=== PATIENT | male | born 1960 ===

== ENCOUNTER 2025-02-28 07:00 | Inpatient (IN) | payer OTHER ==
[~2025-02-28] VITALS: Ht 167.6 cm; Wt 96.2 kg
[2025-02-28 08:26] LABS: HEMATOCRIT 49.5 % (39.0-48.0); MEAN CELL VOLUME 93.1 fL (80.0-100.00); MEAN CORPUSCULAR HGB CONC 34.4 g/dl (32.0-36.0); RED BLOOD COUNT 5.31 M/uL (4.00-6.00)
[2025-02-28 08:29] LABS: PH,URINE 7.5 (5.0-8.0); URINE APPEARANCE Clear; URINE BILIRRUBIN Negative (NEGATIVE); URINE BLOOD Negative; URINE COLOR Yellow; URINE KETONE Trace (NEGATIVE); URINE LEUKOCYTE Negative; URINE NITRATE Negative; URINE PROTEIN Negative (NEGATIVE)
[2025-02-28 08:33] LABS: URINE EPITHELIAL CELLS 1.4 uL (0.0-38.8); URINE RBC 4.7 uL (0.0-20.8)
[2025-02-28 08:33] LABS: PLATELET COUNT 95 K/uL (150-450)
[2025-02-28 08:40] LABS: URINE BACTERIA 1.2 uL (0.0-1933); URINE GLUCOSE >=1000 MG/DL (NEGATIVE); URINE WBC 1.5 uL (0.0-23.2)
[2025-02-28 08:49] VITALS: BP 132/84
[2025-02-28] MEDS ORDERED: TRAZODONE HCL100 MG PO (08:50)
[2025-02-28] MEDS ORDERED: NEURONTIN600 M1 PO (08:51)
[2025-02-28] MEDS ORDERED: PROTONIX40 MG PO (08:51)
[2025-02-28] MEDS ORDERED: AMLODIPINE-OLM1 EAC2 (08:52)
[2025-02-28] MEDS ORDERED: TRAZODONE (08:53)
[2025-02-28] MEDS ORDERED: GLYXAMBI 25 MG1 EACH (08:53)
[2025-02-28] MEDS ORDERED: NORVASC2.5 MG PO (08:54)
[2025-02-28] MEDS ORDERED: CARVEDILOL12.5 MG (08:56)
[2025-02-28 09:05] LABS: INR 1.16; PARTIAL THROMBOPLASTIN TIME 31.3 SECONDS (22.0-34.0); PROTHROMBIN TIME 12.5 SECONDS (9.0-11.5)
[2025-02-28 09:22] LABS: BILIRUBIN TOTAL 1.31 mg/dL (0.3-1.2); CALCIUM 9.6 mg/dL (8.5-10.1); CREATININE SERUM 0.67 mg/dL (0.70-1.30); GFR 119.42; POTASSIUM 3.28 mEq/L (3.5-5.1)
[2025-03-05] MEDS ORDERED: CEFAZOLIN SODIUM 1,000 MG VIAL ONE ×2 (09:35→14:50)
[2025-03-05] MEDS ORDERED: TRANEXAMIC ACID 100MG/1ML (1000MG) AMPUL IV ONE ×3 (09:37→10:45)
[2025-03-05] MEDS ORDERED: KETOROLAC TROMETHAMINE 60 MG VIAL IM ONE ×2 (09:38→10:45)
[2025-03-05] MEDS ORDERED: OxyCODONE HCL/APAP UD (PERCOCET) PO PRN (10:30)
[2025-03-05] MEDS ORDERED: ONDANSETRON HCL 2 MG/ML VIAL IV PRN (10:30)
[2025-03-05] MEDS ORDERED: CEFAZOLIN SODIUM 1,000 MG VIAL IV ONE (10:45)
[2025-03-05] MEDS ORDERED: MORPHINE SULFATE 4 MG/ML VIAL IV ONE ×2 (10:45→14:55)
[2025-03-05] MEDS ORDERED: MORPHINE SULFATE 4 MG/ML CARTRIDGE IV SCH (12:00)
[2025-03-05] MEDS ORDERED: CEFAZOLIN SODIUM 1,000 MG VIAL IV SCH (14:00)
[2025-03-05] MEDS ORDERED: DEXTROSE 50 % IN WATER 0.5 G/ML VIAL IV PRN (16:15)
[2025-03-05] MEDS ORDERED: ENALAPRILAT DIHYDRATE 1.25 MG/ML VIAL IV PRN (16:15)
[2025-03-05] MEDS ORDERED: INSULIN LISPRO 1,000 UNIT/10 ML UNITS SUBCUTANEO PRN (16:15)
[2025-03-05 17:33] VITALS: BP 120/76; O2SAT 95
[2025-03-05] MEDS ORDERED: ORPHENADRINE CITRATE 100 MG TABLET PO SCH (21:00)
[2025-03-05] MEDS ORDERED: CARVEDILOL 12.5 MG TABLET PO SCH (21:00)
[2025-03-05] MEDS ORDERED: GABAPENTIN 100 MG CAPSULE PO SCH (21:00)
[2025-03-06 00:35] VITALS: BP 110/68; O2SAT 94
[2025-03-06 06:58] LABS: HEMATOCRIT 42.7 % (39.0-48.0); HEMOGLOBIN 14.4 g/dL (13-16.00); MEAN CELL VOLUME 94.2 fL (80.0-100.00); MEAN CORPUSCULAR HEMOGLOBIN 31.9 pg (27.00-32.0); MEAN CORPUSCULAR HGB CONC 33.8 g/dl (32.0-36.0); RED BLOOD COUNT 4.53 M/uL (4.00-6.00); RED CELL DISTRIBUTION WIDTH 12.8 % (11.5-14.5)
[2025-03-06 07:12] LABS: PLATELET COUNT 83 K/uL (150-450)
[2025-03-06 08:00] VITALS: BP 117/71; O2SAT 96
[2025-03-06] MEDS ORDERED: AMLODIPINE BESYLATE 5 MG TABLET PO SCH (09:00)
[2025-03-06] MEDS ORDERED: APIXABAN 2.5 MG TABLET PO SCH (09:00)
[2025-03-06 12:35] LABS: COVID-19 AG NEGATIVE (NEGATIVE)
[2025-03-06 16:37] LABS: ALBUMIN 3.4 gm/dL (3.4-5.0); BILIRUBIN TOTAL 2.01 mg/dL (0.3-1.2); CREATININE SERUM 0.6 mg/dL (0.70-1.30); GFR 135.64; GLOBULINA 3.6 G/DL (2.4-3.5); POTASSIUM 3.74 mEq/L (3.5-5.1)
[2025-03-06 18:59] VITALS: BP 123/78; O2SAT 94
[2025-03-07 00:57] VITALS: BP 116/75; O2SAT 92
[2025-03-07 06:23] LABS: HEMATOCRIT 40.3 % (39.0-48.0); HEMOGLOBIN 14.3 g/dL (13-16.00); MEAN CELL VOLUME 91.2 fL (80.0-100.00); MEAN CORPUSCULAR HEMOGLOBIN 32.4 pg (27.00-32.0); MEAN CORPUSCULAR HGB CONC 35.6 g/dl (32.0-36.0); RED BLOOD COUNT 4.42 M/uL (4.00-6.00); RED CELL DISTRIBUTION WIDTH 12.7 % (11.5-14.5)
[2025-03-07 06:57] LABS: PLATELET COUNT 88 K/uL (150-450)
[2025-03-07 09:57] VITALS: BP 111/71; O2SAT 96
[2025-03-07] MEDS ORDERED: ELIQUIS2.5 MG PO (13:08)
[2025-03-07] MEDS ORDERED: GABAPENTIN100 MG PO (13:08)
[2025-03-07] MEDS ORDERED: NORFLEX100MG PO (13:08)
[2025-03-07] MEDS ORDERED: OXYC1TAB9 PO (13:09)
== END 2025-03-07 15:00 | DRG 470 ==
LOC: O/R 03-05 06:47 → SURG 03-05 06:47 → SURH 03-05 07:00 → SURG 03-05 12:52
PROVIDERS: ADMIT Orthopaedic Surgery; ATTEND Orthopaedic Surgery
PROC: 0SRC0JZ Replacement of Right Knee Joint with Synthetic Substitute, Open Approach (ICD-10-PCS; principal; 2025-03-05 12:30)
DX: M17.11 Unilateral primary osteoarthritis, right knee (principal); M85.661 Other cyst of bone, right lower leg; M85.861 Other specified disorders of bone density and structure, right lower leg; E11.9 Type 2 diabetes mellitus without complications; I10 Essential (primary) hypertension; D69.6 Thrombocytopenia, unspecified

== ENCOUNTER 2025-03-04 11:23 | Outpatient (CLI) | payer OTHER ==
[~2025-03-04 11:23] MED LIST: AMLODIPINE-OLM1 EAC2; CARVEDILOL12.5 MG; GLYXAMBI 25 MG1 EACH; NEURONTIN600 M1 PO; NORVASC2.5 MG PO; PROTONIX40 MG PO; TRAZODONE; TRAZODONE HCL100 MG PO
== END 2025-03-04 11:27 | disposition home or self-care (01) ==
LOC: RAD 11:23
PROVIDERS: ATTEND Orthopaedic Surgery
DX: M25.561 Pain in right knee (principal); M25.562 Pain in left knee